=== PATIENT | male | born 1960 | race Caucasian/White ===

== ENCOUNTER → 2017-11-08 | Outpatient (CLI) | payer OTHER ==
[~2017-11-08] MED LIST: ALDACTAZIDE 251 EAC1 PO; COLACE100 MG PO; CYMBALTA30 MG PO; ENDOCET 7.5-321 EACH PO; IMITREX4 MG/0.5 M SUBQ; LOPRESSOR25 PO; MOBIC15 MG PO; NORCO 10-325 T1 EACH PO; NORVASC5 MG PO; PRAVACHOL40 M1 PO; PRILOSEC 20 MG20 MG PO; ROBAXIN 750 MG750 M1 PO
== END ==
LOC: RAD 09:43
DX: M43.22 Fusion of spine, cervical region (principal)